=== PATIENT | male | born 1945 | race Caucasian/White ===

== ENCOUNTER → 2024-01-24 | Outpatient (CLI) | payer MEDICARE, BC ==
[2024-01-24 16:12] VITALS: BP 106/68; PULSE 72; RESP 16; TEMP 97.9
--- NOTE | 2024-01-24 17:44 | P.SLEEP ---
History of Present Illness DATE: 01/24/2024 CONSULTATION/NEW PATIENT EVALUATION HISTORY OF PRESENT ILLNESS/SLEEP-WAKE EVALUATION: 78-year-old gentleman had b een evaluated in the sleep center for possible obstructive sleep apnea hypopnea syndrome. Patient has history of obstructive sleep apnea diagnosed in 2008. At that time he was tried on treatment with CPAP, but for different reasons was not able to use CPAP therapy. SLEEP SCHEDULE: Usually sleep schedule from 10:3011 PM to 5 AM. FALLING ASLEEP: Usually no significant problems with falling asleep. DURING SLEEP: Patient snores and wakes up from sleep 2 times with nocturia. No history of hypnogogical hallucinations, sleep paralysis, or cataplexy. DURING THE DAY/WAKE STATE: During the day patient had problems with memory, tiredness and sleepiness. [place] sleepiness scale is increased to 13. Patient may takes more than 3 naps during the day. PAST MEDICAL HISTORY: Hypertension, diabetes mellitus type 2, hyperlipidemia, hypothyroidism. PAST SURGICAL HISTORY: Please see below. MEDICATIONS: Please see below. SOCIAL HISTORY: Please see below. FAMILY HISTORY: Please see below. REVIEW OF SYSTEMS: Snoring, awakenings from sleep, sleepiness during the day. No fevers. No double vision. No recent chest pain. No shortness of breath. No abdominal pain. No bleeding episodes. No blood in urine. No seizure episodes. PHYSICAL EXAMINATION: GENERAL: A pleasant patient without any distress. VITAL SIGNS: Please see below. HEENT: PERRLA, EOMI. Evaluation of oropharynx showed tongue protrudes midline, low position of soft palate Mallampati 3. NECK: Supple. No JVD. Thyroid is not palpable. 16 inches in circumference. LUNGS: Clear to percussion and to auscultation. Good air exchange. No wheezing or rhonchi. HEART: S1, S2 regular. No murmurs, gallops or rubs. ABDOMEN: Soft and nontender. Bowel sounds are present. No organomegaly appreciated. EXTREMITIES: No clubbing or cyanosis. TRAVELER CHANGER: Awake, alert, and oriented x3. Cranial nerves 2 to 7 intact. There is no fasciculation or atrophy noted. No focal deficits observed. ASSESSMENT: 1. 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 Obstructiv e sleep apnea hypopnea syndrome. 2. Hypertension. 3. Diabetes mellitus type 2. 4. Hypothyroidism. 5 hyperlipidemia. 6 . Status post cardiac valve replacement. 7. Status post knee surgery. PLAN: 1. Polysomnography for evaluation of patient's breathing during sleep. 2. Following plan after reading sleep study. 3. Preferable position during sleep on the side. 4. No driving if patient feels any sleepiness. Patient is aware of civil and criminal liability for unsafe driving. 5. Sleep hygiene with regular sleep time for at least 7.5-8 hours. 6. Watching weight. Thank you very much for referring this patient for consultation. Sincerely, Jaren Lau MD, PhD, FAASM. Diplomat of [employer], Sleep Medicine Board by [employer] [facility] [place] Past Medical History Past Medical History: Diabetes Mellitus, Hyperlipidemia, Sleep Apnea/CPAP/BIPAP, Thyroid Disorder Additional Past Medical History / Comment(s): Aortic valve stenosis History of Any Multi-Drug Resistant Organisms: None Reported Past Surgical History: Cardiac Valve Replacement, Hernia Repair, Orthopedic Surgery Additional Past Surgical History / Comment(s): right knee Past Anesthesia/Blood Transfusion Reactions: No Reported Reaction Past Psychological History: No Psychological Hx Reported Smoking Status: Never smoker Past Alcohol Use History: Occasional Past Drug Use History: None Reported Medications and Allergies Home Medications Medication Instructions Recorded Confirmed Type Atorvastatin [Lipitor] 40 mg PO DAILY 01/24/24 01/24/24 History Escitalopram [Lexapro] 20 mg PO DAILY 01/24/24 01/24/24 History Levothyroxine Sodium [Synthroid] 50 mcg PO DAILY 01/24/24 01/24/24 History Tamsulosin [Flomax] 0.4 mg PO DAILY 01/24/24 01/24/24 History lisinopriL 2.5 mg PO DAILY 01/24/24 01/24/24 History metFORMIN HCL ER [Glucophage XR] 500 mg PO DAILY 01/24/24 01/24/24 History Physical Exam Vitals: Vital Signs Temp Pulse Resp BP Pulse Ox 01/24/24 16:04 97.9 F 72 16 106/68 94 L Sleep Note - Sleep Data ESS Total: 13 - Sleep Note Sleep Note: Temperature: 97.9 F Pulse Rate: 72 Respiratory Rate: 16 Blood Pressure: 106/68 SpO2: 94 Height: Weight: BMI: Neck Circumference: 16
== END ==
LOC: 3 N SLEEP 15:24
PROVIDERS: ATTEND Internal Medicine
DX: G47.33 Obstructive sleep apnea (adult) (pediatric) (principal); I10 Essential (primary) hypertension; E11.9 Type 2 diabetes mellitus without complications; E03.9 Hypothyroidism, unspecified; E78.5 Hyperlipidemia, unspecified; Z98.890 Other specified postprocedural states; Z95.4 Presence of other heart-valve replacement; Z79.890 Hormone replacement therapy; Z79.899 Other long term (current) drug therapy; Z79.84 Long term (current) use of oral hypoglycemic drugs
CPT/HCPCS: 99211

== ENCOUNTER 2024-02-25 19:26 | Outpatient (CLI) | payer MEDICARE, BC ==
--- NOTE | 2024-02-26 10:48 | P.PCN ---
Description of Procedure: POLYSOMNOGRAPHY REPORT PROCEDURE(S)/DATE(S): Polysomnography 02/25/2024 CLINICAL: Patient has been seen in the sleep center for evaluation of obstructive sleep apnea-hypopnea syndrome. Please see my consultation. Sleep study has been done for evaluation of patient breathing during the sleep. PROCEDURE: The standard montage for clinical polysomnography included the electroencephalogram, the electrooculogram, the mentalis surface electromyography and Lead II cardiography. The respiratory battery consisted of measurements of nasal/buccal air flow, pressure transducer measurements from nose, thoracic and/or abdominal effort and intercostal surface electromyography. Video monitoring has been done to check for any parasomnia events. Nocturnal oxyhemoglobin saturations were obtained by finger oximetry. Step-webb titration with positive airway pressure was utilized to control the respiratory events, if necessary. RESULTS: During the diagnostic sleep study sleep efficiency was extremely short 57.7%. Latency to sleep onset was significantly prolonged to 76.5 min. Sleep architecture showed stage NI was slightly increased to 9.4%, Delta sleep was absent 0%, REM sleep was decreased to 12.1%. Respiratory channel showed 11 obstructive apneas, 1 mixed apneas, 0 central apneas, 84 hypopneas with lowest oxygen level 60%. Total apnea hypopnea index was 22.5. Heart rate was in the range between 59 and 67, average 62. EMG showed 6.1 periodic limb movements per hour with 0 micro-arousals per hour. IMPRESSIONS: 1. Moderate obstructive sleep apnea hypopnea syndrome. 2. No significant periodic limb movements have been documented. Please see other impressions from consultation PLAN: 1. The patient will have PAP titration for correction of respiratory abnormalities during the sleep. 2. Sleep hygiene with regular time in bed for at least 7-1/2 hours. 3. No driving if feeling sleepiness. Thank you very much for allowing me to participate in the management of your patient. Sincerely, Jaren Lau MD, PhD, FAASM. Diplomat of [employer], Sleep Medicine Board by [employer] [facility] Ames Qasim Guerra MD
== END 2024-02-26 05:30 | disposition home or self-care (01) ==
LOC: 3 N SLEEP 19:26
PROVIDERS: ATTEND Internal Medicine
DX: G47.33 Obstructive sleep apnea (adult) (pediatric) (principal)
CPT/HCPCS: 95810